=== PATIENT | male | born 1980 | race Caucasian/White ===

== ENCOUNTER 2021-08-09 20:42 | Emergency (ER) | payer BC, SELFPAY ==
[2021-08-09 20:46] VITALS: BP 132/105; PULSE 116; RESP 20; TEMP 37.1; O2SAT 96
--- NOTE | 2021-08-09 21:20 | XR_ITS ---
Final Report Patient: MANJULA LAURA Facility:?[facility] Patient ID:?[id number] Site Patient ID:?[id number]. Site :?[id number] Study:?XRay Chest PCXR-08/09/2021 9:46:09 PM Ordering Physician:Dolores Shepherd Final Report: INDICATION: Chest pain. CHEST, ONE VIEW An AP radiograph of the chest was performed. Comparison: No previous studies are currently available for comparison. The lungs appear clear and no pleural effusions are identified. The cardiomediastinal silhouette and pulmonary vasculature appear normal, as do the visualized bones. IMPRESSION: No acute intrathoracic abnormality identified. KAELYN ROWLAND MD [employer] Dictated by: Moy Rowland MD @ 08/09/2021 21:55:59 (Electronic Signature)
[2021-08-09 21:36] LABS: Slide Review Reflex No
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
[2021-08-09 21:38] LABS: Basophils Absolute Auto 0.03 K/uL (0.00-0.30); Basophils Percent Auto 0.4 % (0.0-3.0); Eosinophils Absolute Auto 0.14 K/uL (0.00-0.50); Hematocrit 40.8 % (37.0-53.0); Hemoglobin* 13.6 gm/dL (13.5-17.5); Immature Granulocytes Abs Auto 0.02 K/uL (0.00-0.30); Lymphocytes Percent Auto 10.1 % (20-44); Mean Corpuscular HGB Conc 33 gm/dL (32-36); Mean Corpuscular Hemoglobin 29 pg (26-34); Mean Corpuscular Volume 86 fL (80-100); Monocytes Percent Auto 11.5 % (0.0-11.0); Neutrophils Percent Auto 75.7 % (42.0-72.0); Platelet Count* 219 K/uL (140-440); RDW Coefficient of Variation % 12.9 % (11.5-15.5); Red Blood Count 4.77 m/uL (4.30-5.90); White Blood Count* 7.05 K/uL (4.50-11.00)
[2021-08-09 21:50] LABS: Albumin* 4.1 g/dL (3.3-5.0); Chloride* 104 mmol/L (96-114); Sodium* 138 mmol/L (135-149)
[2021-08-09 21:51] LABS: Potassium* 3.9 mmol/L (3.6-5.1)
[2021-08-09 21:53] LABS: Alanine Aminotransferase* 34 U/L (4-50); Alkaline Phosphatase* 60 U/L (40-150); Aspartate Amino Transferase* 35 U/L (12-35); Bilirubin Total* 0.5 mg/dL (0.1-1.5); Blood Urea Nitrogen* 12 mg/dL (5-24); Calcium* 8.8 mg/dL (8.4-10.6); Carbon Dioxide* 28 mmol/L (20-32); Creatinine* 1.2 mg/dL (0.5-1.5); Estimated Glomerular Filt Rate 77.43; Glucose* 87 mg/dL (60-115); Total Protein* 6.9 g/dL (6.0-8.3)
[2021-08-09 22:08] LABS: Troponin I* < 0.01 ng/mL (0.01-0.04)
--- NOTE | 2021-08-09 23:06 | ED.NURSE ---
Patient received hard copy RX for Augmentin 875mg BID for 7 days.
== END 2021-08-09 23:08 | disposition home or self-care (01) ==
PROVIDERS: Emergency Provider Internal Medicine
DX: R07.9 Chest pain, unspecified (principal)
CPT/HCPCS: 36415; 71045; 80053; 84484; 85025; 93005; 99283; 99284; 99285